=== PATIENT | male | born 1995 | race Caucasian/White ===

== ENCOUNTER 2025-03-26 11:25 | Emergency (ER) | payer OTHER ==
[~2025-03-26] VITALS: Ht 167.6 cm; Wt 60.0 kg
[2025-03-26 12:09] VITALS: TEMP 98.5
[2025-03-26 15:00] VITALS: BP 129/74; PULSE 79; RESP 18; O2SAT 97
== END 2025-03-26 16:09 ==
LOC: EMS 11:28
DX: Z03.821 Encounter for observation for suspected ingested foreign body ruled out (principal)
CPT/HCPCS: 71250; 72192; 74150; 99284; Z7502